=== PATIENT | male | born 1970 | race Caucasian/White ===

== ENCOUNTER 2021-06-01 06:05 | Emergency (ER) | payer SELFPAY ==
[2021-06-01] MEDS ORDERED: Diazepam 5 MG TAB ONE (06:36)
[2021-06-01] MEDS ORDERED: Ketorolac Tromethamine 60 MG/2 ML VIAL ONE (06:36)
== END 2021-06-01 07:08 | disposition home or self-care (01) ==
LOC: BURERS 06:05
DX: S16.1XXA Strain of muscle, fascia and tendon at neck level, initial encounter (principal); X50.9XXA Other and unspecified overexertion or strenuous movements or postures, initial encounter
CPT/HCPCS: 96372; 99283; J1885